=== PATIENT | female | born 1960 | race Hispanic/Latino ===

== ENCOUNTER 2018-02-13 13:18 | Emergency (ER) | payer SELFPAY | END 2018-02-13 14:28 | disposition home or self-care (01) | LOC: EDH 13:18 | DX: H60.8X2 Other otitis externa, left ear (principal); L73.9 Follicular disorder, unspecified; B86 Scabies; E11.9 Type 2 diabetes mellitus without complications; E78.5 Hyperlipidemia, unspecified; Z79.84 Long term (current) use of oral hypoglycemic drugs; Z79.899 Other long term (current) drug therapy; Z72.0 Tobacco use; Z98.890 Other specified postprocedural states ==

== ENCOUNTER 2018-05-03 21:10 | Emergency (ER) | payer OTHER, SELFPAY ==
[2018-05-03] MEDS ORDERED: HYDROCODONE/ACETAMINOPHEN 5/325 MG TAB ONE (21:43)
== END 2018-05-03 22:39 | disposition home or self-care (01) ==
LOC: EDH 21:10
DX: G89.29 Other chronic pain (principal); M25.562 Pain in left knee; M25.462 Effusion, left knee; E11.9 Type 2 diabetes mellitus without complications; E78.5 Hyperlipidemia, unspecified
CPT/HCPCS: 73562

== ENCOUNTER 2019-07-01 14:12 | Observation (INO) | payer OTHER ==
[~2019-07-01] VITALS: Ht 157.5 cm; Wt 81.7 kg
[2019-07-01 14:36] LABS: EOSINOPHILS % (AUTO) 1.7 % (0.0-8.0); HEMATOCRIT 41.6 % (36-48); LYMPHOCYTES % (AUTO) 33.9 % (21.0-51.0); MEAN CORPUSCULAR HEMOGLOBIN 29.6 pg (27.0-33.0); MEAN CORPUSCULAR HGB CONC 33.4 g/dL (32.0-36.0); MEAN CORPUSCULAR VOLUME 88.7 fL (79-99); MONOCYTES % (AUTO) 14.7 % (3.0-13.0); NEUTROPHILS % (AUTO) 48.5 % (40.0-77.0); PLATELET COUNT (AUTO) 243 K/uL (130-400); RED BLOOD CELL COUNT(AUTO) 4.69 MIL/uL (4.00-5.50); WHITE BLOOD COUNT (AUTO) 4.8 K/uL (4.8-10.8)
[2019-07-01 14:47] LABS: CREATININE 0.9 mg/dL (0.5-1.5); POTASSIUM 3.7 mmol/L (3.5-5.1)
[2019-07-01 14:51] LABS: ALBUMIN 3.7 g/dL (3.5-5.0); BILIRUBIN,TOTAL 0.2 mg/dL (0.2-1.0)
[2019-07-01] MEDS ORDERED: NITROGLYCERIN 0.4 MG SL TAB SL ONE (15:39)
[2019-07-01] MEDS ORDERED: ASPIRIN 325 MG TABLET ONE (15:39)
[2019-07-01 15:50] LABS: INR 0.94 (0.85-1.15); PROTHROMBIN TIME 9.9 SEC (9.6-11.6)
[2019-07-01] MEDS ORDERED: SODIUM CHLORIDE 0.9% 1000ML 1,000 ML IV SCH (18:16)
[2019-07-01] MEDS ORDERED: MORPHINE SULFATE 2 MG/ML 1ML SYG IV PRN (18:30)
[2019-07-01] MEDS ORDERED: ONDANSETRON HCL 4 MG/2 ML VIAL IV PRN (18:30)
[2019-07-01] MEDS ORDERED: ACETAMINOPHEN 325 MG TAB PO PRN ×2 (18:30)
[2019-07-01] MEDS ORDERED: HYDRALAZINE HCL 20 MG/ML VIAL IV PRN (18:30)
[2019-07-01 19:58] LABS: CHOLESTEROL 161 mg/dL (<200); HDL CHOLESTEROL 99 mg/dL (35-85); LDL DIRECT 90 mg/dL (0-99); TRIGLYCERIDES 174 mg/dL (30-200)
[2019-07-01 21:10] VITALS: BP 123/69
[2019-07-01 21:12] LABS: CREATINE KINASE, TOTAL 55 U/L (21-232); MYOGLOBIN 37 ng/mL (10-92); TROPONIN I < 0.04 ng/mL (0.00-0.06)
[2019-07-01] MEDS ORDERED: ATOR20TA65 PO (21:25)
[2019-07-01] MEDS ORDERED: METF-444 PO (21:25)
[2019-07-01] MEDS: METOPROLOL TARTRATE 25 MG TAB PO SCH (22:14)
[2019-07-01] MEDS: FAMOTIDINE/PF 20 MG/2 ML VIAL IV SCH (22:14)
[2019-07-01 23:00] VITALS: BP 107/65
[2019-07-02 03:00] VITALS: BP 110/74
[2019-07-02 03:21] LABS: BASOPHILS % (AUTO) 1.4 % (0.0-5.0); EOSINOPHILS % (AUTO) 3.2 % (0.0-8.0); HEMATOCRIT 39.1 % (36-48); LYMPHOCYTES % (AUTO) 41.8 % (21.0-51.0); MEAN CORPUSCULAR HEMOGLOBIN 29.7 pg (27.0-33.0); MEAN CORPUSCULAR HGB CONC 33.2 g/dL (32.0-36.0); MEAN CORPUSCULAR VOLUME 89.5 fL (79-99); MONOCYTES % (AUTO) 16.5 % (3.0-13.0); NEUTROPHILS % (AUTO) 36.9 % (40.0-77.0); PLATELET COUNT (AUTO) 220 K/uL (130-400); RED BLOOD CELL COUNT(AUTO) 4.37 MIL/uL (4.00-5.50); RED CELL DISTRIBUTION WIDTH 12.9 % (11.0-15.5); WHITE BLOOD COUNT (AUTO) 4.3 K/uL (4.8-10.8)
[2019-07-02 03:41] LABS: ALANINE AMINOTRANSFERASE 25 U/L (12-78); ALBUMIN 3.3 g/dL (3.5-5.0); ASPARTATE AMINOTRANSFERASE 22 U/L (10-37); BILIRUBIN,TOTAL 0.2 mg/dL (0.2-1.0); CARBON DIOXIDE 27 mmol/L (21-32); CHLORIDE 102 mmol/L (101-111); CREATINE KINASE, TOTAL 54 U/L (21-232); CREATININE 0.7 mg/dL (0.5-1.5); GLOMERULAR FILTR. RATE CALC 92 mL/min (>60); GLUCOSE,RANDOM 122 mg/dL (70-105); MYOGLOBIN 34 ng/mL (10-92); POTASSIUM 4.3 mmol/L (3.5-5.1); SODIUM SERUM 140 mmol/L (136-145); TOTAL PROTEIN, SERUM 7.1 g/dL (6.0-8.3); TROPONIN I < 0.04 ng/mL (0.00-0.06); UREA NITROGEN, BLOOD 19 mg/dL (7-18)
--- NOTE | 2019-07-02 07:20 | NUR ---
note [id number]. denies pain or discomfort. no distress or sob. came in with chest pain. negative cardiac enzymes x3. possible dc home today.
[2019-07-02 07:57] VITALS: BP 119/66
[2019-07-02] MEDS ORDERED: ASPIRIN 325 MG TABLET PO SCH (09:00)
[2019-07-02] MEDS: FAMOTIDINE/PF 20 MG/2 ML VIAL IV SCH (09:41)
[2019-07-02] MEDS: METOPROLOL TARTRATE 25 MG TAB PO SCH (09:41)
[2019-07-02 12:00] VITALS: BP 98/60
--- NOTE | 2019-07-02 12:00 | NUR ---
DR LINN CAME IN AND SPOKE TO PATIENT. SHE WILL BE RELEASED HOME TODAY.
== END 2019-07-02 15:40 | disposition home or self-care (01) ==
LOC: EDH 14:12 → OBSVTOIN 18:16 → EDHIP 18:16 → INTOOBSV 18:16 → 3DH 20:06
PROVIDERS: ADMIT Family Medicine; ATTEND Family Medicine
DX: R07.89 Other chest pain (principal); E86.0 Dehydration; R94.4 Abnormal results of kidney function studies; E78.5 Hyperlipidemia, unspecified; E11.9 Type 2 diabetes mellitus without complications; I10 Essential (primary) hypertension; Z79.82 Long term (current) use of aspirin; Z79.84 Long term (current) use of oral hypoglycemic drugs
CPT/HCPCS: 36415 ×2; 71045; 80053 ×2; 80061; 82550 ×2; 82948 ×2; 83874 ×2; 84484 ×3; 85025 ×2; 85610; 85730; 93005; 96361 ×2; 96374; 96376; 99284; G0378 ×22; J3490 ×2; J7030